=== PATIENT | female | born 1975 | race Two or more races ===

== ENCOUNTER 2018-10-01 23:00 | Emergency (ER) | payer OTHER ==
[~2018-10-01] VITALS: Ht 152.4 cm; Wt 73.0 kg
[2018-10-02] MEDS ORDERED: CYCLOBENZAPRINE 10MG TABLET PO ONE (00:15)
[2018-10-02] MEDS ORDERED: IBUPROFEN 600MG TABLET PO ONE (00:15)
[2018-10-02 00:20] VITALS: BP 117/60
== END 2018-10-02 01:56 | disposition home or self-care (01) ==
LOC: ER 23:00
DX: M54.5 Low back pain (principal); Z98.51 Tubal ligation status
CPT/HCPCS: 99283